=== PATIENT | female | born 1960 | race African-American/Black ===

== ENCOUNTER 2021-08-15 19:02 | Inpatient (IN) | payer OTHER ==
[~2021-08-15] VITALS: Ht 165.1 cm; Wt 86.3 kg
[2021-08-15 19:18] VITALS: BP 115/66
[2021-08-15] MEDS ORDERED: BENZTROPINE MESY2 MG PO (19:22)
[2021-08-15] MEDS ORDERED: TRAZODONE HCL100 MG PO (19:22)
[2021-08-15] MEDS ORDERED: INVEGA6 MG PO (19:22)
[2021-08-15] MEDS ORDERED: INVEGA SUS156 MG/1 M IM (19:54)
[2021-08-15 20:29] LABS: HEMATOCRIT 36.2 % (37.0-47.0); HEMOGLOBIN 11.8 gm/dL (12.0-15.0); MCH 28.8 pg (26.0-34.0); MCHC 32.5 g/dL (28.0-37.0); MCV 88.5 fL (80.0-100.0); RBC 4.09 mil/uL (4.20-5.00); RDW 13.8 % (10.5-14.5); WBC 5.7 thou/uL (4.0-11.0)
[2021-08-15 20:48] LABS: ALBUMIN 3.3 g/dL (3.4-5.0); ANION GAP 8 mmol/L (7-16); BUN 10 mg/dL (7-18); CALCIUM 9.1 mg/dL (8.5-10.1); CHLORIDE 104 mmol/L (98-107); CO2 28 mmol/L (21-32); CREATININE 1.1 mg/dL (0.6-1.0); GLUCOSE 100 mg/dL (74-106); PHOSPHORUS 3.3 mg/dL (2.6-4.7); SALICYLATE < 2.8 mg/dL (2.8-20.0); SGOT 19 U/L (15-37); SGPT 17 U/L (14-59); SODIUM 140 mmol/L (136-145); TOTAL BILIRUBIN 0.7 mg/dL (0.2-1.0); TOTAL PROTEIN 7.7 g/dL (6.4-8.2)
[2021-08-15 20:52] LABS: POTASSIUM 2.6 mmol/L (3.5-5.1)
[2021-08-16 03:04] LABS: URINE BILIRUBIN NEGATIVE (Negative); URINE BLOOD NEGATIVE (Negative); URINE CLARITY CLEAR; URINE COLOR YELLOW; URINE GLUCOSE-RANDOM* NEGATIVE (Negative); URINE KETONES NEGATIVE (Negative); URINE LEUKOCYTES-REFLEX NEGATIVE (Negative); URINE NITRITE-REFLEX NEGATIVE (Negative); URINE PROTEIN (DIPSTICK) NEGATIVE (Negative); URINE SPECIFIC GRAVITY <= 1.005 (1.005-1.035); URINE UROBILINOGEN 0.2 E.U./dl (0.2-1.0)
[2021-08-16 07:53] VITALS: BP 123/61
--- NOTE | 2021-08-16 08:18 | EKG ---
[address] [address] ELECTROCARDIOGRAM REPORT Name: SHONNA SANCHEZ Room #: 453-P ADM IN M.R.#: [id number] Admission: 08/15/21 Attend Phys: Olu Roberto MD Discharge: Date of : 64 Report #: [id number] [facility] ED Test Date: 2021-08-15 Test Time: 20:43:46 Pat Name: SHONNA SANCHEZ Department: Room: [facility] Gender: F Commercial Photographer: : 1960 Requested By: Juan Antonio Leone Order Number: [id number] MD: Kennedy Varma Measurements Intervals [place] Rate: 68 P: 43 ID: [id number] QRS: -13 QRSD: 95 T: 3 QT: 408 QTc: 434 Interpretive Statements Sinus rhythm Abnormal R-wave progression, early transition Left ventricular hypertrophy Compared to ECG 03/13/1994 00:51:00 Left ventricular hypertrophy now present Sinus tachycardia no longer present T-wave abnormality no longer present Electronically Signed On 08-16-2021 8:17:53 CDT by Kennedy Varma [email or web address] <ELECTRONICALLY SIGNED> By: Kennedy Varma MD, [facility] 08/16/21816 42 42 Kennedy Varma MD, [facility] /EPI
[2021-08-16 08:31] VITALS: BP 127/69
--- NOTE | 2021-08-16 14:34 | NUR ---
Pt arrived to unit per cart from emergency room around 8am.Admission hx, assessment and careplan completed. Pt was anxious but easy to redirect. Drt hre to visit and stay for over 2 hours before leavingf for home to bring pt home med that wasn't available per pharmacy. Pt c/o headache,tylenol po given with partial relief.Will continue to monitor.
[2021-08-16 14:57] LABS: CALCIUM 9.1 mg/dL (8.5-10.1); CREATININE 0.9 mg/dL (0.6-1.0); POTASSIUM 3.6 mmol/L (3.5-5.1)
[2021-08-16 15:32] VITALS: BP 132/67
--- NOTE | 2021-08-16 15:32 | NUR ---
Nutrition: pt admitted with weakness, hypocalcemia. PMH: shizophrenia, insomnia, HLD. Risked for poor intake, weight loss. Dtr voiced pt sometimes skips meals and doesn't have the best appetite which she attributes to her meds. Weight loss of 10# in the past year-not significant. BMI 31, obesity class 1. Pt states she dislikes hospital food but would not provide specific food preferences. Noted outside food had been brought in which was encouraged as pt on regular diet. Reviewed alternative menu ordering as well. Pt refusing supplements. RD reviewed adequate nutrition/encouraged po with pt. Place as low nutrition risk due to no intervention at present.
[2021-08-16 19:41] VITALS: BP 136/75
[2021-08-17 06:35] LABS: CALCIUM 9.1 mg/dL (8.5-10.1)
--- NOTE | 2021-08-17 07:07 | NUR ---
patient aox4 makes needs known.patient ambulates with steady gaits. patient was calm and cooperative with meds and care. patient denied pain or discomfort. patient in bed asleep at this time breathing regular and unlaboured.
[2021-08-17 07:30] VITALS: BP 128/79
[2021-08-17] MEDS ORDERED: MELATONIN5 M1 PO (11:38)
[2021-08-17 12:14] VITALS: BP 128/79
--- NOTE | 2021-08-17 12:18 | NUR ---
PT ADMITTED RELATED TO HYPOCALCEMIA. CM REVIEWED CHART AND SPOKE WITH CARE TEAM. CM MET WITH PT AT BEDSIDE THIS DAY. PT APPEARED TO BE A&O X4. CM ROLE INTRODUCED. PT INDICATED SHE LIVES IN A [place]UP[place] ALONE WITH NO STEPS. PT INDICATED SHE HAD BEEN INDEPENDENT WITH GAIT AND ADLS [employer]. PT INDICATED HER PCP IS DR. CHENG YOUNG. PT INDICATED SHE PLANS TO DC HOME THIS DAY TO SELF CARE. PT'S DTR TO TRANSPORT. CARE TEAM INDICATED THAT PT IS MEDICALLY STABLE TO DC THIS DAY. NO OTHER CM INTERVENTION INDICATED CASE CLOSED.
--- NOTE | 2021-08-17 12:40 | NUR ---
Assumed pt care at 7am.Assessment completed.vss.Pt in bed very anxious about going home today.Am meds given wth breakfast and well tolerated. Dr Roberto rounded on pt and dc order noted.Dc summary compile and reviewed with pt and dtr. Pt dc home around 1242 after lunch.
== END 2021-08-17 13:39 | disposition home or self-care (01) | DRG 641 ==
LOC: ER 19:02 → 4W 22:19 → EROBS 22:19 → 4W 08-16 07:41
PROVIDERS: Emergency Medicine; Nurse Practitioner Family; ADMIT Hospitalist; ATTEND Hospitalist
DX: E87.6 Hypokalemia (principal); F20.9 Schizophrenia, unspecified; G47.00 Insomnia, unspecified; Z20.822 Contact with and (suspected) exposure to COVID-19; Z88.0 Allergy status to penicillin; Z79.899 Other long term (current) drug therapy; Z28.21 Immunization not carried out because of patient refusal
CPT/HCPCS: 10047